=== PATIENT | male | born 1960 | race African-American/Black ===

== ENCOUNTER 2023-05-27 11:19 | Inpatient (IN) ==
[2023-05-27 11:59] LABS: ABS Eosinophils 0.4 10^3/uL (0.0-0.5); ABS Lymphocytes 0.9 10^3/uL (1.0-4.8); ABS Monocytes 0.5 10^3/uL (0.0-1.1); ABS Neutrophils 4.8 10^3/uL (1.5-7.6); ABS Nucleated RBC 0.01 10^3/ul; Eosinophil % 5.3 %; Hematocrit 45.7 % (38-53); Hemoglobin 15.8 g/dL (13.2-16.3); Lymphocyte % 13.9 %; Mean Corpuscular Hemoglobin 31.7 pg (27-33); Mean Corpuscular Hgb Conc 34.6 g/dL (31-36); Mean Corpuscular Volume 91.7 fL (80-97); Mean Platelet Volume 7.6 fL (7.5-11.2); Nucleated Red Blood Cells % 0.1 %/100WBC (0.0-0.8); Platelet Count 188 10^3/uL (150-450); Red Blood Count 4.99 10^6/uL (4.06-5.63); Red Cell Distribution Width 15.4 % (12-17); White Blood Count 6.6 10^3/uL (3.6-10.2)
[2023-05-27 12:44] LABS: Albumin 4.1 g/dL (3.2-5.2); Albumin/Globulin Ratio 1.5 (1-3); C Reactive Protein 22.7 mg/L (<8.01); Calcium 9.4 mg/dL (8.6-10.3); Creatinine, Serum 1.13 mg/dL (0.67-1.17); Globulin 2.8 g/dL (2-4); Potassium 4.3 mmol/L (3.5-5.0); Total Bilirubin 0.5 mg/dL (0.2-1.0); Total Protein 6.9 g/dL (6.4-8.9); eGFR CKD-EPI 73.9 (>60)
[2023-05-27] MEDS: Morphine 4 MG/ML VIAL (1 ml) IV ONE (13:34)
[2023-05-27] MEDS: Lactated Ringers 1000 ml BAG 1,000 ML IV ONE (13:45)
[2023-05-27] MEDS: Ondansetron 4 mg VIAL 2 MG/ML 2 ml VIAL IV ONE (13:52)
[2023-05-27 14:11] LABS: Erythrocyte Sed Rate 6 mm/Hr (0-19)
[2023-05-27] MEDS: Fluorescein Sodium TOPICAL TEST STRIP OPHTHALMIC ONE (14:49)
[2023-05-27] MEDS: Tetracaine 0.5% OPTH.SOL 4 ML BTL BOTH EYES ONE (14:49)
[2023-05-27 14:59] LABS: Urine Appearance Clear; Urine Bilirubin Negative (Negative); Urine Blood Negative (Negative); Urine Color Light-Yellow; Urine Glucose Negative (Negative); Urine Ketones 2+ (Negative); Urine Nitrite Negative (Negative); Urine Protein Negative (Negative); Urine Specific Gravity 1.012 (1.002-1.030); Urine Urobilinogen Negative (Negative)
[2023-05-27] MEDS ORDERED: Polyethylene Glycol 3350 17 GM PACKET PO PRN (18:02)
[2023-05-27] MEDS ORDERED: Senna TAB 8.6 mg TAB PO PRN (18:02)
[2023-05-27] MEDS ORDERED: Magnesium Hydroxide LIQ 30 ML UDC PO PRN (18:02)
[2023-05-27] MEDS: Lactated Ringers 1000 ml BAG 1,000 ML IV SCH (18:13)
[2023-05-27] MEDS: Morphine 2 MG/ML SYRINGE IV PRN (18:13)
[2023-05-27] MEDS: Artificial Tear OPHTH.OINT 3.5 GM BOTH EYES SCH (20:53)
[2023-05-27] MEDS ORDERED: Moxifloxacin 0.5% OPHTH(NF) 1 DROP OPHTH.SOLN BOTH EYES SCH (21:00)
[2023-05-27] MEDS ORDERED: Zinc Oxide 40% (TOPICAL) TUBE TOPICAL SCH (21:00)
[2023-05-27] MEDS: Enoxaparin 40 MG/0.4 ML SYR SUBCUT SCH (21:13)
[2023-05-27] MEDS: Zinc Oxide 40% (TOPICAL) TUBE TOPICAL SCH (21:19)
[2023-05-27] MEDS: Triamcinolone 0.5% OINT 1 TUBE TOPICAL SCH (21:19)
[2023-05-27] MEDS: methylPREDNISolone SOD SUCC 500 MG in NS 100 ML BAG IVPB SCH (21:31)
[2023-05-28 05:16] LABS: ABS Lymphocytes 0.5 10^3/uL (1.0-4.8); ABS Monocytes 0.1 10^3/uL (0.0-1.1); ABS Neutrophils 2.7 10^3/uL (1.5-7.6); ABS Nucleated RBC 0.01 10^3/ul; Eosinophil % 0.1 %; Hematocrit 41.3 % (38-53); Hemoglobin 14.2 g/dL (13.2-16.3); Lymphocyte % 14.4 %; Mean Corpuscular Hemoglobin 31.5 pg (27-33); Mean Corpuscular Hgb Conc 34.4 g/dL (31-36); Mean Corpuscular Volume 91.4 fL (80-97); Mean Platelet Volume 7.5 fL (7.5-11.2); Nucleated Red Blood Cells % 0.5 %/100WBC (0.0-0.8); Platelet Count 183 10^3/uL (150-450); Red Blood Count 4.52 10^6/uL (4.06-5.63); Red Cell Distribution Width 15.2 % (12-17); White Blood Count 3.2 10^3/uL (3.6-10.2)
[2023-05-28 05:32] LABS: Albumin 3.8 g/dL (3.2-5.2); Albumin/Globulin Ratio 1.4 (1-3); C Reactive Protein 14.91 mg/L (<8.01); Calcium 8.9 mg/dL (8.6-10.3); Creatinine, Serum 0.93 mg/dL (0.67-1.17); Globulin 2.7 g/dL (2-4); Magnesium 1.8 mg/dL (1.9-2.7); Potassium 4.5 mmol/L (3.5-5.0); Total Bilirubin 0.5 mg/dL (0.2-1.0); Total Protein 6.5 g/dL (6.4-8.9); eGFR CKD-EPI 93.4 (>60)
[2023-05-28] MEDS: Acetaminophen IV 1 GM/100ML 1,000 MG/100 ML BAG IV PRN (10:15)
[2023-05-28 13:53] LABS: Chlamydia trachomatis NAA Negative (Negative); Neisseria gonorrhoeae (GC) NAA Negative (Negative)
[2023-05-28] MEDS: methylPREDNISolone SOD SUCC 500 MG in NS 0.9% 100 ml BAG 100 ML IVPB SCH (16:48)
[2023-05-28] MEDS: Triamcinolone 0.5% OINT 1 TUBE TOPICAL SCH (21:19)
[2023-05-29 05:36] LABS: ABS Lymphocytes 0.8 10^3/uL (1.0-4.8); ABS Monocytes 0.3 10^3/uL (0.0-1.1); ABS Neutrophils 14.5 10^3/uL (1.5-7.6); Hematocrit 38.7 % (38-53); Hemoglobin 13.2 g/dL (13.2-16.3); Lymphocyte % 4.9 %; Mean Corpuscular Hgb Conc 34.1 g/dL (31-36); Mean Corpuscular Volume 90.9 fL (80-97); Mean Platelet Volume 7.8 fL (7.5-11.2); Platelet Count 199 10^3/uL (150-450); Red Blood Count 4.26 10^6/uL (4.06-5.63); Red Cell Distribution Width 14.9 % (12-17); White Blood Count 15.5 10^3/uL (3.6-10.2)
[2023-05-29 05:51] LABS: Calcium 8.9 mg/dL (8.6-10.3); Creatinine, Serum 0.91 mg/dL (0.67-1.17); Potassium 4.3 mmol/L (3.5-5.0); eGFR CKD-EPI 95.9 (>60)
[2023-05-29 06:47] LABS: HIV 4th Generation Nonreactive (Nonreactive)
[2023-05-29] MEDS: methylPREDNISolone SOD SUCC 500 MG in NS 0.9% 100 ml BAG 100 ML IVPB SCH (14:46)
[2023-05-29 16:41] LABS: Herpes Simplex Virus I IgG AB Positive (Negative); Herpes Simplex Virus II IgG AB Positive (Negative)
[2023-05-30 05:27] LABS: ABS Lymphocytes 0.8 10^3/uL (1.0-4.8); ABS Monocytes 0.2 10^3/uL (0.0-1.1); ABS Neutrophils 15.8 10^3/uL (1.5-7.6); ABS Nucleated RBC 0.01 10^3/ul; Hematocrit 37.9 % (38-53); Hemoglobin 12.8 g/dL (13.2-16.3); Lymphocyte % 4.5 %; Mean Corpuscular Hemoglobin 30.8 pg (27-33); Mean Corpuscular Hgb Conc 33.7 g/dL (31-36); Mean Corpuscular Volume 91.6 fL (80-97); Nucleated Red Blood Cells % 0.1 %/100WBC (0.0-0.8); Platelet Count 213 10^3/uL (150-450); Red Blood Count 4.14 10^6/uL (4.06-5.63); Red Cell Distribution Width 15.1 % (12-17); White Blood Count 16.7 10^3/uL (3.6-10.2)
[2023-05-30 05:44] LABS: Calcium 8.8 mg/dL (8.6-10.3); Creatinine, Serum 0.9 mg/dL (0.67-1.17); Potassium 4.4 mmol/L (3.5-5.0); eGFR CKD-EPI 97.2 (>60)
[2023-05-30 14:10] VITALS: BP 131/85
== END 2023-05-30 15:47 | disposition home or self-care (01) | DRG 596 ==
LOC: EDHOLD 11:19 → ED 11:19 → MEDTELE 16:55
PROVIDERS: ADMIT Internal Medicine; ATTEND Internal Medicine